=== PATIENT | male | born 1995 | race American Indian/Alaskan Native ===

== ENCOUNTER 2019-02-08 16:25 | Emergency (ER) | payer SELFPAY ==
[2019-02-08 16:37] VITALS: BP 145/79
--- NOTE | 2019-02-08 19:56 | Emergency Department Report ---
Chief Complaint: Eye Problems Stated Complaint: LEFT EYE IS BLEEDING Time Seen by Provider: 02/08/19 19:50 - ROS Review of Systems: ambulated pt to room 29 vss nad went back to eval pt and she was gone. mse completed no life threat - Exam Vital Signs: Vital Signs 02/08/19 16:36 Temperature 98.3 F Pulse Rate 74 Respiratory 18 Rate Blood Pressure 145/79 O2 Sat by Pulse 100 Oximetry MSE screening note: Focused history and physical exam performed. Due to findings the following was ordered: ED Disposition for MSE Condition: Stable
== END 2019-02-08 20:00 | disposition left against medical advice (07) ==
LOC: ED 16:25
DX: H11.32 Conjunctival hemorrhage, left eye (principal); Z53.21 Procedure and treatment not carried out due to patient leaving prior to being seen by health care provider